=== PATIENT | female | born 1945 | race Caucasian/White ===

== ENCOUNTER 2016-06-25 09:16 | Emergency (ER) | payer MEDICARE, BC ==
[2016-06-25] MEDS ORDERED: NITROGLYCERIN 0.4 MG TAB SL PRN (09:39)
[2016-06-25] MEDS ORDERED: MORPHINE SULFATE 10 MG/ML SOL IV PRN ×2 (09:39)
[2016-06-25] MEDS ORDERED: ALUMINUM/MAGNESIUM 30 ML SUS PO PRN (09:39)
[2016-06-25] MEDS ORDERED: ACETAMINOPHEN 325 MG PO PRN (09:39)
[2016-06-25] MEDS ORDERED: SODIUM CHLORIDE 0.9% FLUSH 10 ML SOL IV SCH (09:45)
[2016-06-25 10:08] LABS: BASOPHILS % (AUTO) 1 % (0-3); EOSINOPHILS % (AUTO) 0 % (0-9); HEMATOCRIT 38 % (35-47); MEAN CORPUSCULAR HGB CONC 34.4 gm/dl (32.0-36.0); NEUTROPHILS % (AUTO) 72.9 % (37-80)
[2016-06-25 10:16] LABS: ALBUMIN 3.5 gm/dl (3.4-5.0); CALCIUM 8.6 mg/dl (8.5-10.1)
[2016-06-25] MEDS ORDERED: ASPIRIN 81 MG CHEWABLE CTB PO ONE (10:20)
[2016-06-25] MEDS ORDERED: ASPIRIN 81 MG CHEWABLE CTB ONE (10:22)
[2016-06-25 11:24] VITALS: BP 144/63; PULSE 62; RESP 16; TEMP 98.7; O2SAT 98
== END 2016-06-25 11:18 | disposition home or self-care (01) | DRG 313 ==
LOC: ED 09:16
DX: R07.9 Chest pain, unspecified (principal); R94.31 Abnormal electrocardiogram [ECG] [EKG]
CPT/HCPCS: 36415; 71010; 80053; 82550; 84484; 85025; 85610; 93005; 99284

== ENCOUNTER 2016-12-18 | Inpatient (IN) | payer MEDICARE, BC ==
[2016-12-18] MEDS ORDERED: ONDANSETRON HCL 4 MG/2 ML SOL IV ONE (00:45)
[2016-12-18] MEDS ORDERED: ONDANSETRON HCL 4 MG/2 ML SOL ONE (00:46)
[2016-12-18 01:09] LABS: HEMATOCRIT 40 % (35-47); MEAN CORPUSCULAR HGB CONC 35.2 gm/dl (32.0-36.0); MEAN CORPUSCULAR VOLUME 85 fL (81-99)
[2016-12-18] MEDS ORDERED: HYDROMORPHONE HCL 2 MG/ML SOL IV ONE (01:21)
[2016-12-18] MEDS ORDERED: SODIUM CHLORIDE 0.9% 1000ML 1,000 ML IV ONE (01:22)
[2016-12-18] MEDS ORDERED: HYDROMORPHONE HCL 2 MG/ML SOL ONE (01:23)
[2016-12-18 01:35] LABS: ALBUMIN 3.8 gm/dl (3.4-5.0); CALCIUM 10.7 mg/dl (8.5-10.1); POTASSIUM 4.2 mMol/L (3.5-5.1)
[2016-12-18 02:11] LABS: BASOPHILS % (MANUAL) 1 % (0-3); EOSINOPHILS % (MANUAL) 0 % (0-9); LYMPHOCYTES % (MANUAL) 16 % (10-50); NORMAL RBCS PRESENT
[2016-12-18] MEDS ORDERED: HYDROMORPHONE HCL 2 MG/ML SOL IV PRN (03:26)
[2016-12-18] MEDS ORDERED: SODIUM CHLORIDE/KCL 20MEQ 1,000 ML IV SCH (03:30)
[2016-12-18 07:25] LABS: APPEARANCE,URINE Clear; BILIRUBIN,URINE NEGATIVE (NEGATIVE); COLOR,URINE Yellow; GLUCOSE, URINE (UA) NEGATIVE (NEGATIVE); KETONES,URINE NEGATIVE (NEGATIVE); LEUKOCYTE ESTERASE ,URINE NEGATIVE (NEGATIVE); NITRATE,URINE NEGATIVE (NEGATIVE); OCCULT BLOOD,URINE NEGATIVE (NEG-TRACE); UROBILINOGEN,URINE 0.2 (0.2-1.0 EU)
[2016-12-18 07:41] LABS: RBC,URINE NEGATIVE (0-3AV/HPF); WBC,URINE 0-2 (0-5AV/HPF)
[2016-12-18] MEDS ORDERED: HYDROMORPHONE 1 MG/ML SYRINGE IV PRN (08:57)
[2016-12-18] MEDS ORDERED: FLUTICASONE PROPIONATE SPR NAS PRN (09:00)
[2016-12-18] MEDS ORDERED: ASPIRIN EC 81 MG PO SCH (09:00)
[2016-12-18] MEDS ORDERED: LISINOPRIL 5 MG TAB PO SCH (09:00)
[2016-12-18] MEDS ORDERED: BUDESONIDE/FORMOTEROL 160/4.5 AER INH PRN (09:00)
[2016-12-18] MEDS: PANTOPRAZOLE SODIUM 40 MG/10 ML PDS IV SCH (10:08)
[2016-12-18] MEDS: SODIUM CHLORIDE 0.9% 1000ML 1,000 ML IV SCH ×3 (10:15→22:21)
[2016-12-19] MEDS: SODIUM CHLORIDE 0.9% 1000ML 1,000 ML IV SCH ×2 (03:31→08:41)
[2016-12-19 07:23] LABS: CALCIUM 8.1 mg/dl (8.5-10.1); POTASSIUM 3.8 mMol/L (3.5-5.1)
[2016-12-19 07:32] LABS: BASOPHILS % (AUTO) 1 % (0-3); EOSINOPHILS % (AUTO) 2 % (0-9); HEMATOCRIT 32 % (35-47); MEAN CORPUSCULAR HGB CONC 35.4 gm/dl (32.0-36.0); MEAN CORPUSCULAR VOLUME 88 fL (81-99); MONOCYTES % (AUTO) 11.7 % (0-12); NEUTROPHILS % (AUTO) 63.8 % (37-80)
[2016-12-19] MEDS: PANTOPRAZOLE SODIUM 40 MG/10 ML PDS IV SCH (08:47)
[2016-12-19] MEDS: DEXTROSE/SALINE 0.45/KCL 20MEQ 1,000 ML/1,000 ML SOL IV SCH (11:55)
[2016-12-19] MEDS ORDERED: LEVOFLOXACIN 25 MG/ML 500 MG in SODIUM CHLORIDE 0.9% 100 ML 100 ML IV SCH (14:45)
[2016-12-19] MEDS: METRONIDAZOLE 500 MG (PREMIX) 500 MG/100 ML SOL IV SCH (15:32)
[2016-12-19] MEDS ORDERED: LEVOFLOXACIN 25 MG/ML SOL IV ONE (15:34)
[2016-12-19] MEDS ORDERED: SODIUM CHLORIDE 0.9% 100 ML 100 ML IV ONE (15:34)
[2016-12-20] MEDS: DEXTROSE/SALINE 0.45/KCL 20MEQ 1,000 ML/1,000 ML SOL IV SCH ×2 (02:45→09:31)
[2016-12-20] MEDS: METRONIDAZOLE 500 MG (PREMIX) 500 MG/100 ML SOL IV SCH (02:45)
[2016-12-20 07:14] VITALS: BP 138/76; PULSE 63; RESP 18; TEMP 97.8; O2SAT 95
[2016-12-20 07:28] LABS: CALCIUM 8.1 mg/dl (8.5-10.1); POTASSIUM 4.2 mMol/L (3.5-5.1)
[2016-12-20] MEDS: PANTOPRAZOLE SODIUM 40 MG/10 ML PDS IV SCH (09:31)
== END 2016-12-20 11:00 | disposition home or self-care (01) | DRG 390 ==
LOC: ED → ACUTE CARE 03:03
PROVIDERS: ADMIT Family Medicine; ATTEND Family Medicine
DX: K56.60 Unspecified intestinal obstruction (principal); J44.9 Chronic obstructive pulmonary disease, unspecified; I10 Essential (primary) hypertension
CPT/HCPCS: 36415; 74020; 74177; 80048; 80053; 81001; 82150; 85007; 85025; 85027; 96365; 96374; 96375; 99070; 99222; 99285; J1170; J1956; J2405; Q9967

== ENCOUNTER 2017-01-09 08:45 | Day surgery (SDC) | payer MEDICARE, BC ==
[~2017-01-09 08:45] MED LIST: LIDOCAINE HCL 1% MPF SOL ONE; PROPOFOL 500 MG/50 ML EMU IV ONE
[2017-01-09] MEDS ORDERED: ALBUTEROL/IPRATROPIUM 1 VIAL SOL ONE (09:27)
[2017-01-09 11:19] VITALS: TEMP 97.8
[2017-01-09 11:33] VITALS: O2SAT 96
[2017-01-09 11:45] VITALS: RESP 20
[2017-01-09 11:54] VITALS: BP 143/77; PULSE 91
== END 2017-01-09 12:01 | disposition home or self-care (01) | DRG 392 ==
LOC: SURG 08:45
PROVIDERS: ATTEND Internal Medicine Gastroenterology
DX: R10.9 Unspecified abdominal pain (principal); K56.69 Other intestinal obstruction; Z83.79 Family history of other diseases of the digestive system; R93.3 Abnormal findings on diagnostic imaging of other parts of digestive tract; K57.30 Diverticulosis of large intestine without perforation or abscess without bleeding; K64.8 Other hemorrhoids; K52.9 Noninfective gastroenteritis and colitis, unspecified; K62.89 Other specified diseases of anus and rectum
CPT/HCPCS: J7620; J2001; J2704

== ENCOUNTER 2018-04-18 12:55 | Emergency (ER) | payer MEDICARE, BC ==
[2018-04-18 13:52] LABS: ALBUMIN 2.6 gm/dl (3.4-5.0); BILIRUBIN,TOTAL 0.4 mg/dl (0.2-1.0); CALCIUM 8.3 mg/dl (8.5-10.1); CARBON DIOXIDE 30.3 mEq/L (21-32); CREATININE 1.15 mg/dl (0.60-1.00); POTASSIUM 3.6 mMol/L (3.5-5.1); TOTAL PROTEIN 6.2 gm/dl (6.4-8.2)
[2018-04-18 13:55] LABS: LACTIC ACID 1.3 mMol/L (0.0-2.0)
[2018-04-18 13:58] LABS: HEMATOCRIT 30 % (35-47); HEMOGLOBIN 9.9 gm/dl (12.0-15.5); MEAN CORPUSCULAR HEMOGLOBIN 29.4 pg (27.0-32.0); MEAN CORPUSCULAR HGB CONC 32.4 gm/dl (32.0-36.0); MEAN CORPUSCULAR VOLUME 91 fL (81-99)
[2018-04-18 14:36] LABS: BAND NEUTROPHILS % (MANUAL) 0 %; BASOPHILS % (MANUAL) 0 % (0-3); EOSINOPHILS % (MANUAL) 0 % (0-9); LYMPHOCYTES % (MANUAL) 76 % (10-50); MONOCYTES % (MANUAL) 18 % (0-12); NEUTROPHILS % (MANUAL) 6 % (37-80); NORMAL RBCS PRESENT
[2018-04-18 14:51] LABS: APPEARANCE,URINE Clear; BILIRUBIN,URINE NEGATIVE (NEGATIVE); COLOR,URINE Yellow; GLUCOSE, URINE (UA) NEGATIVE (NEGATIVE); KETONES,URINE NEGATIVE (NEGATIVE); LEUKOCYTE ESTERASE ,URINE NEGATIVE (NEGATIVE); NITRATE,URINE NEGATIVE (NEGATIVE); OCCULT BLOOD,URINE NEGATIVE (NEG-TRACE); PH,URINE 5.5; UROBILINOGEN,URINE 0.2 (0.2-1.0 EU)
[2018-04-18 15:08] LABS: BACTERIA 1+ (< 1+); CRYSTALS NEGATIVE (0-3 AVE/HPF); RBC,URINE 0-2 (0-3AV/HPF); WBC,URINE 0-2 (0-5AV/HPF)
[2018-04-18] MEDS ORDERED: FILGRASTIM 300 MCG SC ONE (15:54)
[2018-04-18] MEDS ORDERED: CIPROFLOXACIN HCL 500 MG TAB PO SCH (16:00)
[2018-04-18] MEDS ORDERED: AMOXIL/CLAVULANATE 400/5 ML PDR PO ONE (16:00)
[2018-04-18] MEDS ORDERED: CIPROFLOXACIN HCL 500 MG TAB PO ONE (16:00)
[2018-04-18] MEDS ORDERED: AMOXIL/CLAVULANATE 400/5 ML PDR ONE (16:03)
[2018-04-18] MEDS ORDERED: ACETAMINOPHEN 500 MG 500 MG TAB PO ONE (17:03)
[2018-04-18] MEDS ORDERED: ACETAMINOPHEN 500 MG 500 MG TAB ONE (17:04)
[2018-04-18 17:13] VITALS: BP 147/76; PULSE 107; RESP 18; TEMP 102.7; O2SAT 99
== END 2018-04-18 17:07 | disposition home or self-care (01) | DRG 810 ==
LOC: ED 12:55
DX: D70.9 Neutropenia, unspecified (principal); R50.81 Fever presenting with conditions classified elsewhere
CPT/HCPCS: 36415; 71045; 80053; 81001; 85007; 85027; 87040; 96372; 99284; 99291; J1442; A9270-GY

== ENCOUNTER 2018-05-10 06:18 | Emergency (ER) | payer MEDICARE, BC ==
[2018-05-10 06:45] VITALS: RESP 20
[2018-05-10 07:07] LABS: CALCIUM 8.6 mg/dl (8.5-10.1); CARBON DIOXIDE 27.4 mEq/L (21-32); CREATININE 0.94 mg/dl (0.60-1.00); POTASSIUM 4.2 mMol/L (3.5-5.1)
[2018-05-10 07:17] LABS: HEMATOCRIT 28 % (35-47); HEMOGLOBIN 9.2 gm/dl (12.0-15.5); MEAN CORPUSCULAR HEMOGLOBIN 29.3 pg (27.0-32.0); MEAN CORPUSCULAR HGB CONC 32.5 gm/dl (32.0-36.0); MEAN CORPUSCULAR VOLUME 90 fL (81-99)
[2018-05-10 07:35] LABS: ANISOCYTOSIS SLIGHT AMT; BAND NEUTROPHILS % (MANUAL) 13 %; BASOPHILS % (MANUAL) 0 % (0-3); EOSINOPHILS % (MANUAL) 0 % (0-9); LYMPHOCYTES % (MANUAL) 15 % (10-50); MONOCYTES % (MANUAL) 13 % (0-12); NEUTROPHILS % (MANUAL) 59 % (37-80)
[2018-05-10 08:25] VITALS: BP 141/86; PULSE 114; TEMP 100.1; O2SAT 93
== END 2018-05-10 07:56 | disposition home or self-care (01) | DRG 864 ==
LOC: ED 06:18
DX: R50.9 Fever, unspecified (principal)
CPT/HCPCS: 36415; 80048; 85007; 85027; 99282; 99283

== ENCOUNTER 2018-05-13 13:20 | Inpatient (IN) | payer MEDICARE, BC ==
[2018-05-13] MEDS ORDERED: METOPROLOL TARTRATE 5 MG/5 ML SOL IV ONE ×7 (13:38→17:39)
[2018-05-13] MEDS ORDERED: AMIODARONE 50 MG/ML SOL IV ONE (13:58)
[2018-05-13 14:05] LABS: BASOPHILS % (AUTO) 0 % (0-3); EOSINOPHILS % (AUTO) 0 % (0-9); HEMATOCRIT 29 % (35-47); HEMOGLOBIN 9.4 gm/dl (12.0-15.5); LYMPHOCYTES % (AUTO) 6.7 % (10-50); MEAN CORPUSCULAR HEMOGLOBIN 29.6 pg (27.0-32.0); MEAN CORPUSCULAR HGB CONC 32.8 gm/dl (32.0-36.0); MEAN CORPUSCULAR VOLUME 90 fL (81-99); MONOCYTES % (AUTO) 9.9 % (0-12); NEUTROPHILS % (AUTO) 82.9 % (37-80)
[2018-05-13] MEDS ORDERED: AMIODARONE 50 MG/ML SOL ONE ×4 (14:07→20:20)
[2018-05-13 14:14] LABS: BLOOD UREA NITROGEN 11 mg/dl (7-18); CALCIUM 7.7 mg/dl (8.5-10.1); CARBON DIOXIDE 26.4 mEq/L (21-32); CHLORIDE 96 mMol/L (98-107); CREATININE 1.09 mg/dl (0.60-1.00); GLUCOSE 150 mg/dl (74-106); POTASSIUM 3.6 mMol/L (3.5-5.1); SODIUM 132 mMol/L (136-145); TROP I < 0.017 ng/ml (0.000-0.056)
[2018-05-13] MEDS ORDERED: SODIUM CHLORIDE 0.9% 1000ML 1,000 ML IV ONE (14:19)
[2018-05-13] MEDS ORDERED: AMIODARONE 50 MG/ML 450 MG in DEXTROSE 250 ML 250 ML IV ONE (14:20)
[2018-05-13 15:09] LABS: APPEARANCE,URINE Slightly Cloudy; BILIRUBIN,URINE 1+ (NEGATIVE); COLOR,URINE Yellow; GLUCOSE, URINE (UA) NEGATIVE (NEGATIVE); KETONES,URINE NEGATIVE (NEGATIVE); LEUKOCYTE ESTERASE ,URINE NEGATIVE (NEGATIVE); NITRATE,URINE NEGATIVE (NEGATIVE); OCCULT BLOOD,URINE NEGATIVE (NEG-TRACE); UROBILINOGEN,URINE 0.2 (0.2-1.0 EU)
[2018-05-13 15:22] LABS: BACTERIA 2+ (< 1+); CRYSTALS NEGATIVE (0-3 AVE/HPF); EPITHELIAL CELLS 0-5 (SQUAMOUS); ICTOTEST,URINE NEGATIVE (NEGATIVE); RBC,URINE NEGATIVE (0-3AV/HPF); WBC,URINE 0-3 (0-5AV/HPF)
[2018-05-13] MEDS ORDERED: SULFAMETHOXAZOLE/TRIMETHOPRI 800/160 MG PO ONE (15:24)
[2018-05-13] MEDS ORDERED: SULFAMETHOXAZOLE/TRIMETHOPRI 800/160 MG ONE (15:52)
[2018-05-13] MEDS ORDERED: PATIENT EDUCATION 1 MISC PRN (17:13)
[2018-05-13] MEDS ORDERED: ACETAMINOPHEN 325 MG PO PRN (17:40)
[2018-05-13] MEDS ORDERED: PROCHLORPERAZINE MALEATE 5 MG TAB PO PRN (18:13)
[2018-05-13] MEDS: ENOXAPARIN 80 MG SOL SC SCH (18:24)
[2018-05-13] MEDS: METOPROLOL TARTRATE 50 MG TAB PO SCH ×2 (18:26→20:49)
[2018-05-13] MEDS: SODIUM CHLORIDE 0.9% 1000ML 1,000 ML IV SCH (18:50)
[2018-05-13] MEDS: SODIUM CHLORIDE 0.9% FLUSH 10 ML SOL IV SCH (18:52)
[2018-05-13] MEDS ORDERED: DEXTROSE 250 ML 250 ML IV ONE (20:21)
[2018-05-13] MEDS ORDERED: AMIODARONE 50 MG/ML 600 MG in DEXTROSE 250 ML 250 ML IV ONE (20:30)
[2018-05-14] MEDS: SODIUM CHLORIDE 0.9% FLUSH 10 ML SOL IV SCH ×3 (04:46→18:31)
[2018-05-14] MEDS: SODIUM CHLORIDE 0.9% 1000ML 1,000 ML IV SCH ×3 (04:51→23:14)
[2018-05-14] MEDS: ENOXAPARIN 80 MG SOL SC SCH ×2 (05:46→18:35)
[2018-05-14] MEDS: ALBUTEROL NEB SOL 2.5MG/3ML 1 VIAL SOL NEB PRN ×3 (07:19→23:43)
[2018-05-14 07:21] LABS: CALCIUM 7.4 mg/dl (8.5-10.1); CREATININE 1.06 mg/dl (0.60-1.00); POTASSIUM 3.8 mMol/L (3.5-5.1)
[2018-05-14 07:28] LABS: HEMATOCRIT 26 % (35-47); HEMOGLOBIN 8.5 gm/dl (12.0-15.5); MEAN CORPUSCULAR HEMOGLOBIN 29.6 pg (27.0-32.0); MEAN CORPUSCULAR HGB CONC 32.7 gm/dl (32.0-36.0); MEAN CORPUSCULAR VOLUME 90 fL (81-99)
[2018-05-14 08:03] LABS: BAND NEUTROPHILS % (MANUAL) 11 %; BASOPHILS % (MANUAL) 0 % (0-3); EOSINOPHILS % (MANUAL) 0 % (0-9); LYMPHOCYTES % (MANUAL) 11 % (10-50); MONOCYTES % (MANUAL) 6 % (0-12); NEUTROPHILS % (MANUAL) 72 % (37-80)
[2018-05-14 08:04] LABS: ANISOCYTOSIS SLIGHT AMT
[2018-05-14] MEDS ORDERED: POTASSIUM CHLORIDE 10 MEQ TER ONE (08:26)
[2018-05-14] MEDS: METOPROLOL TARTRATE 50 MG TAB PO SCH ×2 (08:30→20:26)
[2018-05-14] MEDS: LISINOPRIL 5 MG TAB PO SCH (08:30)
[2018-05-14] MEDS ORDERED: POTASSIUM CHLORIDE 10 MEQ CAPSULE PO SCH (09:00)
[2018-05-14] MEDS ORDERED: PANTOPRAZOLE SODIUM 40 MG/10 ML PDS IV SCH (09:00)
[2018-05-14] MEDS ORDERED: BUDESONIDE/FORMOTEROL 160/4.5 AER INH PRN (09:30)
[2018-05-14] MEDS ORDERED: LEVOFLOXACIN 25 MG/ML SOL IV ONE (10:34)
[2018-05-14] MEDS ORDERED: SODIUM CHLORIDE 0.9% 100 ML 100 ML IV ONE ×4 (10:34→23:20)
[2018-05-14] MEDS: LEVOFLOXACIN 25 MG/ML 500 MG in SODIUM CHLORIDE 0.9% 100 ML 100 ML IV SCH (10:44)
[2018-05-14] MEDS ORDERED: PIPERACILLIN/TAZOBACT 3.375 GM PDS IV ONE ×3 (11:25→23:20)
[2018-05-14] MEDS: PIPERACILLIN/TAZOBACT 3.375 GM 3.375 GM in SODIUM CHLORIDE 0.9% 100 ML 100 ML IV SCH ×3 (12:10→23:40)
[2018-05-14] MEDS: METRONIDAZOLE 250 MG TAB PO SCH ×3 (14:00→20:26)
[2018-05-14] MEDS: AMIODARONE 200 MG TAB PO SCH (15:15)
[2018-05-14] MEDS: [UNRECOGNIZED DRUG - OTHER] INH SCH (20:25)
[2018-05-14] MEDS ORDERED: BUDESONIDE/FORMOTEROL 160/4.5 AER INH SCH (21:00)
[2018-05-15] MEDS: SODIUM CHLORIDE 0.9% FLUSH 10 ML SOL IV SCH ×6 (01:51→23:30)
[2018-05-15] MEDS ORDERED: SODIUM CHLORIDE 0.9% 100 ML 100 ML IV ONE ×5 (05:45→23:25)
[2018-05-15] MEDS ORDERED: PIPERACILLIN/TAZOBACT 3.375 GM PDS IV ONE ×4 (05:45→23:25)
[2018-05-15] MEDS: ENOXAPARIN 80 MG SOL SC SCH ×2 (05:54→17:43)
[2018-05-15] MEDS: PIPERACILLIN/TAZOBACT 3.375 GM 3.375 GM in SODIUM CHLORIDE 0.9% 100 ML 100 ML IV SCH ×4 (05:54→23:29)
[2018-05-15] MEDS: METRONIDAZOLE 250 MG TAB PO SCH ×4 (09:31→20:49)
[2018-05-15] MEDS: AMIODARONE 200 MG TAB PO SCH (09:31)
[2018-05-15] MEDS: POTASSIUM CHLORIDE 10 MEQ TER PO SCH (09:32)
[2018-05-15] MEDS: LISINOPRIL 5 MG TAB PO SCH (09:33)
[2018-05-15] MEDS: METOPROLOL TARTRATE 50 MG TAB PO SCH ×2 (09:33→20:48)
[2018-05-15] MEDS: PANTOPRAZOLE SODIUM 40 MG ECT PO SCH (09:34)
[2018-05-15] MEDS: [UNRECOGNIZED DRUG - OTHER] INH SCH ×2 (09:38→20:50)
[2018-05-15 09:43] LABS: BASOPHILS % (AUTO) 0 % (0-3); EOSINOPHILS % (AUTO) 0 % (0-9); HEMATOCRIT 25 % (35-47); HEMOGLOBIN 8.1 gm/dl (12.0-15.5); LYMPHOCYTES % (AUTO) 7.8 % (10-50); MEAN CORPUSCULAR HEMOGLOBIN 29.7 pg (27.0-32.0); MEAN CORPUSCULAR HGB CONC 32.7 gm/dl (32.0-36.0); MEAN CORPUSCULAR VOLUME 91 fL (81-99); MONOCYTES % (AUTO) 6.5 % (0-12); NEUTROPHILS % (AUTO) 85.2 % (37-80)
[2018-05-15] MEDS ORDERED: SODIUM CHLORIDE 0.9% FLUSH 10 ML SOL IV PRN (10:22)
[2018-05-15] MEDS ORDERED: LEVOFLOXACIN 25 MG/ML SOL IV ONE (10:49)
[2018-05-15] MEDS: LEVOFLOXACIN 25 MG/ML 500 MG in SODIUM CHLORIDE 0.9% 100 ML 100 ML IV SCH (11:23)
[2018-05-15 11:55] LABS: ABO A; ANTIBODY SCREEN Negative; RH TYPE Positive; UNIT TYPE A POSITIVE
[2018-05-15 11:56] LABS: UNIT TYPE A POSITIVE
[2018-05-15] MEDS: ALBUTEROL NEB SOL 2.5MG/3ML 1 VIAL SOL NEB PRN (12:34)
[2018-05-15] MEDS ORDERED: VALACYCLOVIR HYDROCHLORIDE 1 GM TAB PO SCH (14:00)
[2018-05-15] MEDS: FUROSEMIDE 20mg SOL IV PRN ×2 (15:54→18:33)
[2018-05-15] MEDS: SODIUM CHLORIDE 0.9% 1000ML 1,000 ML IV SCH (20:50)
[2018-05-16] MEDS ORDERED: PIPERACILLIN/TAZOBACT 3.375 GM PDS IV ONE (03:20)
[2018-05-16] MEDS ORDERED: SODIUM CHLORIDE 0.9% 100 ML 100 ML IV ONE (03:20)
[2018-05-16] MEDS: PIPERACILLIN/TAZOBACT 3.375 GM 3.375 GM in SODIUM CHLORIDE 0.9% 100 ML 100 ML IV SCH (05:21)
[2018-05-16] MEDS: SODIUM CHLORIDE 0.9% FLUSH 10 ML SOL IV SCH (05:21)
[2018-05-16] MEDS: ENOXAPARIN 80 MG SOL SC SCH (06:41)
[2018-05-16 08:10] VITALS: BP 150/79; PULSE 68; RESP 16; TEMP 96.8; O2SAT 97
[2018-05-16 08:11] LABS: CALCIUM 7.7 mg/dl (8.5-10.1); CARBON DIOXIDE 24.6 mEq/L (21-32); CREATININE 1.18 mg/dl (0.60-1.00); POTASSIUM 3.5 mMol/L (3.5-5.1)
[2018-05-16 08:14] LABS: HEMATOCRIT 32 % (35-47); HEMOGLOBIN 10.4 gm/dl (12.0-15.5); MEAN CORPUSCULAR HEMOGLOBIN 28.6 pg (27.0-32.0); MEAN CORPUSCULAR HGB CONC 32.2 gm/dl (32.0-36.0); MEAN CORPUSCULAR VOLUME 89 fL (81-99)
[2018-05-16] MEDS: METRONIDAZOLE 250 MG TAB PO SCH (08:54)
[2018-05-16] MEDS: AMIODARONE 200 MG TAB PO SCH (08:54)
[2018-05-16] MEDS: METOPROLOL TARTRATE 50 MG TAB PO SCH (08:55)
[2018-05-16] MEDS: POTASSIUM CHLORIDE 10 MEQ TER PO SCH (08:55)
[2018-05-16] MEDS: PANTOPRAZOLE SODIUM 40 MG ECT PO SCH (08:55)
[2018-05-16] MEDS: LISINOPRIL 5 MG TAB PO SCH (08:56)
[2018-05-16] MEDS: [UNRECOGNIZED DRUG - OTHER] INH SCH (08:57)
[2018-05-16 09:08] LABS: ANISOCYTOSIS SLIGHT AMT; BAND NEUTROPHILS % (MANUAL) 0 %; BASOPHILS % (MANUAL) 0 % (0-3); EOSINOPHILS % (MANUAL) 0 % (0-9); LYMPHOCYTES % (MANUAL) 13 % (10-50); METAMYELOCYTES%(MANUAL) 0; MONOCYTES % (MANUAL) 10 % (0-12); MYELOCYTES%(MANUAL) 0; NEUTROPHILS % (MANUAL) 77 % (37-80); PLATELET MORPHOLOGY COMMENT ADEQUATE
== END 2018-05-16 11:30 | disposition home or self-care (01) | DRG 309 ==
LOC: ED 13:20 → ACUTE CARE 15:56 → UNDOADMIN 15:56 → ACUTE CARE 16:15
PROVIDERS: ADMIT Family Medicine; ATTEND Family Medicine
DX: I48.91 Unspecified atrial fibrillation (principal); N30.00 Acute cystitis without hematuria; L03.119 Cellulitis of unspecified part of limb; C34.90 Malignant neoplasm of unspecified part of unspecified bronchus or lung; R50.9 Fever, unspecified; R05 Cough; I10 Essential (primary) hypertension; D64.9 Anemia, unspecified; J44.9 Chronic obstructive pulmonary disease, unspecified; R06.02 Shortness of breath
CPT/HCPCS: 36415; 71045; 71260; 74177; 80048; 81001; 82272; 83880; 84443; 84484; 85007; 85025; 85027; 86850; 86900; 86901; 86920; 87040; 87088; 93005; 93012; 93306; 94150; 94640; 96365; 96374; 96375; 99070; 99284; 99285; J0282; J1650; J1940; J1956; J2543; J7613; P9016; Q9967; A9270-GY; J3490

== ENCOUNTER 2018-08-13 18:55 | Emergency (ER) | payer MEDICARE, BC ==
[2018-08-13 19:27] VITALS: RESP 16; TEMP 98.2
[2018-08-13] MEDS ORDERED: SULFAMETHOXAZOLE/TRIMETHOPRI 800/160 MG PO ONE (20:04)
[2018-08-13] MEDS ORDERED: SULFAMETHOXAZOLE/TRIMETHOPRI 800/160 MG ONE (20:05)
[2018-08-13 20:31] LABS: HEMATOCRIT 32 % (35-47); HEMOGLOBIN 10.1 gm/dl (12.0-15.5); MEAN CORPUSCULAR HEMOGLOBIN 31.9 pg (27.0-32.0); MEAN CORPUSCULAR HGB CONC 31.6 gm/dl (32.0-36.0)
[2018-08-13 20:32] LABS: MEAN CORPUSCULAR VOLUME 101 fL (81-99)
[2018-08-13 20:43] LABS: BAND NEUTROPHILS % (MANUAL) 13 %; BASOPHILS % (MANUAL) 0 % (0-3); EOSINOPHILS % (MANUAL) 0 % (0-9); LYMPHOCYTES % (MANUAL) 9 % (10-50); MONOCYTES % (MANUAL) 2 % (0-12); NEUTROPHILS % (MANUAL) 76 % (37-80)
[2018-08-13 20:44] LABS: NORMAL RBCS PRESENT
[2018-08-13 21:02] VITALS: BP 139/64; PULSE 64; O2SAT 98
== END 2018-08-13 21:01 | disposition home or self-care (01) | DRG 603 ==
LOC: ED 18:55
DX: L03.113 Cellulitis of right upper limb (principal)
CPT/HCPCS: 36415; 85007; 85027; 99282; A9270-GY